=== PATIENT | male | born 1940 | race Two or more races ===

== ENCOUNTER 2017-10-22 12:13 | Outpatient (CLI) | payer OTHER ==
[~2017-10-22 12:13] MED LIST: ALTACE1.25 MG; CALTRATE 600 +1 EACH; COREG CR10 MG; GABAPENTIN100 MG; OMEGA DHA92 MG; ZOCOR5 MG
== END 2017-10-22 15:00 | disposition home or self-care (01) ==
LOC: RAD 12:13
DX: S82.64XD Nondisplaced fracture of lateral malleolus of right fibula, subsequent encounter for closed fracture with routine healing (principal)

== ENCOUNTER 2018-08-29 13:36 | Outpatient (CLI) | payer OTHER | END 2018-08-29 13:53 | disposition home or self-care (01) | LOC: NUCLEAR 13:36 | DX: M81.0 Age-related osteoporosis without current pathological fracture (principal) ==

== ENCOUNTER 2018-11-17 08:55 | Outpatient (CLI) | payer OTHER | END 2018-11-17 15:00 | disposition home or self-care (01) | LOC: LAB 08:55 | DX: E55.9 Vitamin D deficiency, unspecified (principal); M85.9 Disorder of bone density and structure, unspecified; E21.2 Other hyperparathyroidism; E88.89 Other specified metabolic disorders; M81.8 Other osteoporosis without current pathological fracture; E83.42 Hypomagnesemia; E56.1 Deficiency of vitamin K ==

== ENCOUNTER 2018-11-17 10:40 | Outpatient (CLI) | payer OTHER | END 2018-11-17 16:01 | disposition home or self-care (01) | LOC: RAD 10:40 | DX: M54.5 Low back pain (principal) ==